=== PATIENT | female | born 1965 | race Caucasian/White ===

== ENCOUNTER 2020-07-20 23:32 | Emergency (ER) | payer MEDICARE ==
[2020-07-21] MEDS ORDERED: Aspirin 81 MG Tab.Chew PO ONE (00:11)
[2020-07-21 01:14] LABS: BLOOD UREA NITROGEN,BUN 14 mg/dL (7.0-18.0); CARBON DIOXIDE,CO2 29.1 mmol/L (21.0-32.0); CHLORIDE,CL 106 mmol/L (98-107); GLUCOSE RANDOM 80 mg/dL (74-106); POTASSIUM,K 3.5 mmol/L (3.5-5.1); SODIUM,NA 144 mmol/L (136-145)
--- NOTE | 2020-07-21 02:49 | US ---
INDICATION: Left foot greater than right lower extremity edema. COMPARISON: None available FINDINGS: Ultrasound of the venous drainage of both lower extremities shows no evidence of deep venous thrombosis. There is normal antegrade flow from the posterior tibial and popliteal veins superiorly through the common femoral vein in both legs. There is normal augmentation and compressibility of these veins. Superficial edema is seen in the left calf. IMPRESSION: No evidence of deep venous thrombosis on ultrasound examination of both lower extremities. Superficial edema in the left calf. Dictated by Jermaine Alvarez MD @ Jul 21 2020 2:46AM Signed by Dr. Jermaine Alvarez @ Jul 21 2020 2:48AM
--- NOTE | 2020-07-21 03:27 | CR ---
HISTORY: Pain after fall COMPARISON: None available. FINDINGS: The right foot is examined with AP, lateral, and oblique views. There is no sign of fracture or dislocation. There is mild soft tissue swelling of the distal foot with no sign of any gas in the soft tissues or radiopaque foreign body. There is mild primary osteoarthritis of the 1st MTP joint with moderate joint space narrowing, mild sclerosis of the articular surfaces, and mild marginal osteophyte formation. No additional degenerative changes seen elsewhere in the foot. IMPRESSION: No sign of acute osseous injury. 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 Dictated by Jermaine Alvarez MD @ Jul 21 2020 3:24AM Signed by Dr. Jermaine Alvarez @ Jul 21 2020 3:26AM
--- NOTE | 2020-07-21 03:29 | CR ---
HISTORY: Pain after fall. COMPARISON: None available. FINDINGS: AP, lateral and oblique views of the right ankle were obtained for a total of three views. There is no sign of fracture or dislocation. The ankle mortise is intact. The talar dome is intact. There is no sign of a joint effusion. There is mild swelling over the lateral malleolus with no evidence of an underlying fracture. The soft tissues are otherwise normal in appearance and there is no sign of any radiopaque foreign body. No degenerative disease is seen. IMPRESSION: No sign of acute osseous injury. Mild lateral soft tissue swelling. Dictated by Jermaine Alvarez MD @ Jul 21 2020 3:24AM Signed by Dr. Jermaine Alvarez @ Jul 21 2020 3:27AM
--- NOTE | 2020-07-21 03:29 | CR ---
INDICATION: Pain after fall COMPARISON: None available. FINDINGS: An erect single view of the chest was obtained at 0231 hours. The lungs are clear. No focal or diffuse infiltrates are present. The heart is mildly enlarged. The mediastinum is otherwise normal in appearance. The osseous structures are normal in appearance for the patient`s age. IMPRESSION: Mild cardiomegaly. Otherwise no active disease seen in the chest. Dictated by Jermaine Alvarez MD @ Jul 21 2020 3:24AM Signed by Dr. Jermaine Alvarez @ Jul 21 2020 3:28AM
--- NOTE | 2020-07-21 03:31 | CT ---
INDICATION: Status post fall with pain. COMPARISON: None available. TECHNIQUE: CT examination of the head was performed with 5 mm thick axial and 2 mm thick coronal and sagittal sections without intravenous contrast. Images were obtained from the vertex of the skull through the skull base, and I examined the images with the brain and bone windows. Please note that all CT scans at this facility use dose modulation, iterative reconstruction, and/or weight-based dosing when appropriate to reduce radiation dose to as low as reasonably achievable. FINDINGS: : The brain is normal in appearance for the patient`s age on today`s study, with no sign of mass lesion, mass effect, hemorrhage, or edema. The ventricles and sulci are normal in appearance for the patient`s age. The visualized portions of the orbits are normal in appearance. The visualized portions of the paranasal sinuses and mastoids are clear. The osseous structures are normal in their appearance with no sign of abnormality in the skull base or calvarium. IMPRESSION: Normal noncontrast CT of the head for the patient`s age. No sign of closed head injury. Please note that all CT scans at this facility use dose modulation, iterative reconstruction, and/or weight-based dosing when appropriate to reduce radiation dose to as low as reasonably achievable. Dictated by Jermaine Alvarez MD @ Jul 21 2020 3:24AM Signed by Dr. Jermaine Alvarez @ Jul 21 2020 3:31AM
--- NOTE | 2020-07-21 03:36 | CT ---
INDICATION: Status post fall with pain. COMPARISON: COMPARISON DATE TECHNIQUE: CT examination of the cervical spine is performed without contrast using spiral technique. 2 mm thick axial, sagittal and coronal reconstructions were made. Please note that all CT scans at this facility use dose modulation, iterative reconstruction, and/or weight-based dosing when appropriate to reduce radiation dose to as low as reasonably achievable. FINDINGS: : There is straightening of the cervical spine which may be the result of muscular spasm or positioning for the examination. There is no sign of fracture or subluxation. The cervical vertebral bodies are normal in height and are in anatomic alignment. There is no sign of prevertebral soft tissue swelling. There is moderate C5-6 disc degenerative disease with mild diffuse disc bulging and posterior osteophytic ridging. There may be a peripherally calcified disc herniation extending inferiorly from the disc space. These changes do not appear to be prominent enough to result in spinal stenosis. Moderate right foraminal stenosis from uncovertebral joint hypertrophy. Normal left neural foramen. There is mild disc degenerative disease at C4-5 without disc bulging, osteophytic ridging, or foraminal stenosis. There is moderate left C3-4 facet arthropathy with possible fusion in anatomic alignment. The airway structures are normal in appearance. The visualized skull base is normal in appearance. The visualized inferior brain is normal in appearance for the patient`s age. The apices of the lungs are clear. IMPRESSION: No sign of acute osseous injury to the cervical spine. Moderate disc degenerative disease at C5-6 with possible disc herniation, not prominent enough to result in spinal stenosis. Mild disc degenerative disease at C4-5. Please note that all CT scans at this facility use dose modulation, iterative reconstruction, and/or weight-based dosing when appropriate to reduce radiation dose to as low as reasonably achievable. Dictated by Jermaine Alvarez MD @ Jul 21 2020 3:24AM Signed by Dr. Jermaine Alvarez @ Jul 21 2020 3:35AM
--- NOTE | 2020-07-21 03:42 | CT ---
INDICATION: Pain after fall COMPARISON: COMPARISON DATE TECHNIQUE: CT examination of the abdomen and pelvis was performed with the uneventful intravenous administration of 100 cc of Isovue 370 while 2.5 mm thick axial sections were obtained from the lung bases through the pubic symphysis. Oral contrast was not administered. Please note that all CT scans at this facility use dose modulation, iterative reconstruction, and/or weight-based dosing when appropriate to reduce radiation dose to as low as reasonably achievable. FINDINGS: In the abdomen, the liver, spleen, atrophic pancreas, and adrenals are normal in appearance. The kidneys are normal in appearance. Clips are seen in the gall bladder fossa from cholecystectomy. There is no sign of biliary ductal dilatation. The abdominal aorta is normal in caliber with no sign of dilatation. There is no sign of retroperitoneal mass or adenopathy. There are several lines of surgical marsha in the gastric fundus consistent with gastric bypass surgery. A small bowl anastamosis is seen in the left upper quadrant with no sign of stricture. The distal stomach, the rest of the loops of small bowel, and colon in the abdomen are normal in appearance. In the pelvis, the appendix is normal in appearance with no sign of inflammatory process. There is prominent sigmoid diverticulosis without evidence of diverticulitis. The loops of small bowel and colon in the pelvis are otherwise normal in appearance. The uterus is absent and the adnexal regions are normal in appearance. The urinary bladder is normal in appearance. There is no sign of pelvic or inguinal mass or adenopathy. There is no sign of free air or free fluid in the abdomen or pelvis. There is mild patchy and linear atelectasis in the posterior right lung base. The lung bases are otherwise clear. There are changes of laminectomy and fusion at L5-S1 with bilateral intrapedicular screws with vertical and transverse connecting hardware. There is no sign of fracture or loosening of the hardware. There is grade 1-2 anterior subluxation of L5 on S1. There is solid osseous fusion with complete absence of the L5 and S1 disc space. Incidental note is made of failure of fusion of an accessory ossification center at the tip of the right L4 transverse process, not an acute fracture. There is no sign of acute fracture of the lumbar spine, pelvis, or hips. IMPRESSION: No sign of acute traumatic injury to the abdomen or pelvis. CT of the abdomen shows changes of cholecystectomy with no sign of biliary ductal dilatation. Changes of gastric bypass surgery. CT of the pelvis shows changes of hysterectomy. Solid fusion of L5-S1 with grade 1-2 anterior subluxation of L5 on S1. Please note that all CT scans at this facility use dose modulation, iterative reconstruction, and/or weight-based dosing when appropriate to reduce radiation dose to as low as reasonably achievable. Dictated by Jermaine Alvarez MD @ Jul 21 2020 3:24AM Signed by Dr. Jermaine Alvarez @ Jul 21 2020 3:41AM
[2020-07-21] MEDS ORDERED: Iopamidol 755 MG/ML 500 ML Multipack Bottle IVPUSH STA (03:51)
--- NOTE | 2020-07-21 05:31 | EDM.PDOC ---
ED HPI GENERAL MEDICAL PROBLEM - General Chief Complaint: Lower Extremity Injury/Pain Stated Complaint: RT FOOT INJURY, BLACKING OUT Time Seen by Provider: 07/21/20 00:13 - History of Present Illness INITIAL COMMENTS - FREE TEXT/NARRATIVE: CHIEF COMPLAINT(S): Right foot pain HISTORY OF PRESENT ILLNESS: This is a 54-year-old woman with a past medical history of hypertension, reported CHF, COPD, anxiety and chronic pain who comes to the emergency department with a chief complaint of right foot pain. The patient states that over the last couple of days she has been accidentally falling. She states that last Wednesday she got out of bed and twisted her right foot and toes as she had twisted and fell backward hitting her head. She states that since that time she has been experiencing swollen toes and foot on the right side. She denies any numbness or tingling. She states that she did not have any loss of consciousness when she hit her head. She denies any vomiting, chest pain or shortness of breath. She denies any preceding chest pain or shortness of breath. She states that she has not yet seen a doctor for her foot. She states that the pain is worse when she puts pressure on it. She denies any relieving symptoms. She states that she does have a history of chronic pain due to a surgery and a knee surgery for which she takes oxycodone. She has seen a armored car messenger and does telemedicine follow-up with them. She states that 2 hours ago she fell out of bed and may have lost consciousness and hit her head. She states that she just was rolling out of her bed. In addition to that she was walking from the kitchen to the bedroom and she turned around and tripped over a litter box and hit the right side of her chest. She denies any syncope, preceding chest pain, preceding shortness of breath. She states that she lives by herself. REVIEW OF SYSTEMS: Constitutional: Denies fever, chills. Eyes: Denies eye pain Ears, Nose, Mouth, & Throat: Denies earache Cardiovascular: Positive for right-sided chest pain, denies exertional chest pain, syncope Respiratory: Denies shortness of breath, orthopnea, exertional dyspnea Gastrointestinal: Denies Nausea, vomiting, diarrhea, hematochezia. Genitourinary: Denies hematuria Skin:Denies a rash MSK: Positive for right foot pain. Neurological: Denies blurred vision, numbness, tingling, weakness Psychiatric: Denies depression PAST MEDICAL HISTORY: As per history of present illness and as reviewed below otherwise noncontributory. SURGICAL HISTORY: As per history of present illness and as reviewed below otherwise noncontributory. SOCIAL HISTORY: As per history of present illness and as reviewed below otherwise noncontributory. FAMILY HISTORY: As per history of present illness and as reviewed below otherwise noncontributory. EXAMINATION OF ORGAN SYSTEMS/BODY AREAS: Constitutional: Blood pressure is 146/93, heart rate 93, respiratory rate 18 with an oxygen saturation 96% on room air. Temperature 36 point General: Middle-aged woman who does not appear to be in acute distress Psychiatric: Appropriate mood and affect. Head: Normocephalic, atraumatic Eyes: No scleral icterus or conjunctival erythema pupils are equal round reactive to light. Extraocular movements intact. No vertical or horizontal nystagmus. ENMT: Moist mucous membranes. No pharyngeal erythema no blood in the oropharynx. No missing or chipped teeth. Neck was supple. Bilateral tympanic membranes without hemotympanum Cardiovascular: Regular, rate, and rhythm. No gallops, murmurs, or rubs. Bilateral upper extremity pulses symmetric and intact. Trace pitting edema of the lower extremities. Left lower extremity is larger than the left. No JVD. Respiratory: Lungs clear to auscultation bilaterally. No wheezes, rales, or rhonchi. Speaking in full sentences Gastrointestinal: Soft, nontender, distended. Normoactive bowel sounds no rebound or guarding. Genitourinary: No suprapubic tenderness Musculoskeletal: There is some tenderness to palpation along the right foot with full range of motion at the ankle and the toes. There is no obvious bruising or deformity. Skin: No lesions or abrasions. Neurological: Alert, GCS 15 strength and sensation grossly intact in upper and lower extremities bilaterally. MEDICAL DECISION MAKING AND COURSE IN THE ED WITH INTERPRETATION/REVIEW OF DIAGNOSTIC STUDIES: This is a 54-year-old and with a past medical history of reported CHF and hypertension and chronic pain who comes to the emergency department with recurrent falls with right foot pain, asymmetric lower extremity with distended abdomen. At this time given her recurrent falls we obtain a CT head without contrast, CT cervical spine. We did place a cervical collar on the patient. We will obtain a chest x-ray and right ankle x-ray. Given the asy mmetry on lower extremity examination will obtain a venous Doppler. Will obtain a right foot x-ray and a CT abdomen pelvis given the distention. Will obtain broad laboratory analysis. We also obtain a Covid test. Differential at this time is broad however I do believe the patient is having recurrent falls as she has injured her right foot 1 week ago and is using oxycodone for pain relief. The patient is neurologically intact. We will provide the patient with aspirin by mouth. Laboratory: CBC is unremarkable. Coags are normal. CMP is unremarkable. Troponin is negative. Covid is negative. Time: 1236 Twelve-lead EKG interpreted by myself. Normal sinus rhythm at a rate of 84 beats per minute. Normal axis. MI interval is 140 ms. QRS duration is [address] segments are normal without elevations or depressions. There is a T wave inversion in lead III there is a Q wave in lead III. Hypertrophy not noted. No prior EKGs in our system. Interpretation: Normal sinus rhythm The radiological images were viewed by myself along with reading the report from the radiologist. CT head without contrast does not reveal any acute intracranial abnormality. CT cervical spine does not reveal any fracture or subluxation. There is moderate degenerative disc disease at C5-C6 with possible disc herniation which does not result in spinal stenosis. Mild disc degenerative disease at C4-C5. Chest x-ray does not reveal any acute cardiopulmonary process. There is mild cardiomegaly. CT abdomen pelvis with contrast does not reveal any acute traumatic injury of the abdomen or pelvis. There is changes of cholecystectomy with no sign of biliary ductal dilation. There is changes of bypass surgery. Changes of hysterectomy. There is solid fusion L5-S1 with grade 1-2 anterior subluxation. There are no signs of fracture or loosening of the hardware. Right foot x-ray does not reveal any fracture or dislocation. Right ankle x-ray does not reveal any fracture dislocation. At the time of my reevaluation the patient's vitals continue to remain stable. I did discuss that at this time the given the recurrent falls we could admit the patient to the hospital for evaluation by PT and OT. She requested that she be discharged. The patient was able to ambulate without any assistance and was able to tolerate p.o. The patient does have a friend at bedside and we did have a lengthy discussion regarding recurrent falls and injury. At this time the patient elected to be discharged with follow-up with her primary care physician for which I provided her contact information in order to set up outpatient physical therapy, Occupational Therapy evaluation. I discussed with her precautions and strict return precautions. She was amenable discharge at this time and had no further questions. I do believe the patient is safe for discharge given her friend will be helping her. DISPOSITION: The patient was discharged home in stable condition. The patient will follow up with primary care physician tomorrow CONDITION: Fair PROCEDURES: None FINAL IMPRESSION(S)/DIAGNOSES: 1. Acute recurrent falls 2. Acute right foot pain likely soft tissue injury 3. Asymmetric lower extremity edema, unknown etiology Anup Souza M.D. Treatments TRANSCRIPTION COORDINATOR: Reports: Cervical Collar R ribs Pain Score (Numeric/FACES): 6 R foot Pain Score (Numeric/FACES): 6 - Related Data Allergies Allergy/AdvReac Type Severity Reaction Status Date / Time morphine Allergy Other Verified 07/21/20 00:21 Penicillins Allergy Hives Verified 07/21/20 00:21 Home Meds: Home Meds Budesonide/Formoterol [Symbicort 160-4.5 MCG] 2 puff INH DAILY 07/21/20 [History] Chlorthalidone 25 mg PO DAILY 07/21/20 [History] EPINEPHrine [Epipen] 1 ampule IM DAILY PRN 07/21/20 [History] FLUoxetine [PROzac] 10 ml PO DAILY 07/21/20 [History] Loratadine 10 mg PO DAILY 07/21/20 [History] Metoprolol Succinate 25 mg PO DAILY 07/21/20 [History] Montelukast [Singulair] 10 mg PO DAILY 07/21/20 [History] Naloxone [Narcan] 1 ampule IM DAILY PRN 07/21/20 [History] Non-Formulary Medication [NF Drug] 2 drop EYEBOTH DAILY 07/21/20 [History] QUEtiapine [SEROquel] 200 mg PO DAILY 07/21/20 [History] SUMAtriptan succinate [Imitrex] 100 mg PO DAILY 07/21/20 [History] Tiotropium Buhl [Spiriva Respimat] 2 puff INH DAILY 07/21/20 [History] atorvaSTATin [Lipitor] 10 mg PO DAILY 07/21/20 [History] clonazePAM [Clonazepam] 2 mg PO DAILY 07/21/20 [History] dilTIAZem HCL [Diltiazem 12Hr ER] 120 mg PO DAILY 07/21/20 [History] lamoTRIgine [Lamotrigine] 200 mg PO DAILY 07/21/20 [History] oxyCODONE 5 mg PO Q6HR PRN 07/21/20 [History] Past Medical History HEENT History: Reports: Macular Degeneration Cardiovascular History: Reports: Heart Failure, Hypertension Other Cardiovascular History: tachycardia, long QT syndrome Respiratory History: Reports: COPD Other Gastrointestinal History: gastric bypass 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: Musculoskeletal History: Reports: Fibromyalgia, Osteoarthritis Other Musculoskeletal History: shoulder pain, spinal sx, Psychiatric History: Reports: Anxiety, Bipolar Other Endocrine/Metabolic History: pre-diabetic - Infectious Disease History Infectious Disease History: Reports: Chicken Pox, Shingles - Past Surgical History HEENT Surgical History: Reports: Adenoidectomy, Myringotomy w Tube(s), Naso- Sinus Surgery, Tonsillectomy Female Surgical History: Reports: Hysterectomy Musculoskeletal Surgical History: Reports: Knee Replacement Social & Family History - Family History Family Medical History: No Pertinent Family History - Caffeine Use Caffeine Use: Reports: Coffee, Tea - Recreational Drug Use Recreational Drug Use: No Review of Systems - Review of Systems Review Of Systems: See Below ED EXAM, GENERAL - Physical Exam Exam: See Below Course - Vital Signs Last Recorded V/S: Last Vital Signs Temp 36.6 C 07/20/20 23:57 Pulse 80 07/21/20 05:58 Resp 20 07/21/20 05:58 BP 126/90 07/21/20 01:11 Pulse Ox 100 07/21/20 05:58 - Orders/Labs/Meds Labs: Laboratory Tests 07/21/20 07/21/20 07/21/20 Range/Units 00:25 00:25 00:25 WBC 9.72 (4.0-11.0) K/uL RBC 4.22 L (4.30-5.90) M/uL Hgb 12.1 (12.0-16.0) g/dL Hct 38.1 (36.0-46.0) % MCV 90.3 (80.0-98.0) fL MCH 28.7 (27.0-32.0) pg MCHC 31.8 (31.0-37.0) g/dL RDW Std Deviation 63.6 H (28.0-62.0) fl RDW Coeff of Gifty 20 H (11.0-15.0) % Plt Count 313 (150-400) K/uL MPV 10.10 (7.40-12.00) fL Neut % (Auto) 46.9 L (48.0-80.0) % Lymph % (Auto) 40.4 H (16.0-40.0) % [place] % (Auto) 11.0 (0.0-15.0) % Eos % (Auto) 1.3 (0.0-7.0) % Baso % (Auto) 0.4 (0.0-1.5) % Neut # (Auto) 4.6 (1.4-5.7) K/uL Lymph # (Auto) 3.9 H (0.6-2.4) K/uL [place] # (Auto) 1.1 H (0.0-0.8) K/uL Eos # (Auto) 0.1 (0.0-0.7) K/uL Baso # (Auto) 0.0 (0.0-0.1) K/uL INR 1.02 Sodium 144 (136-145) mmol/L Potassium 3.5 (3.5-5.1) mmol/L Chloride 106 (98-107) mmol/L Carbon Dioxide 29.1 (21.0-32.0) mmol/L BUN 14 (7.0-18.0) mg/dL Creatinine 0.9 (0.6-1.0) mg/dL Est Cr Clr Drug Dosing 58.42 mL/min Estimated GFR (MDRD) > 60.0 ml/min Glucose 80 (74-106) mg/dL Calcium 9.1 (8.5-10.1) mg/dL Magnesium 2.1 (1.8-2.4) mg/dL Total Bilirubin 0.3 (0.2-1.0) mg/dL AST 23 (15-37) IU/L ALT 42 (14-63) IU/L Alkaline Phosphatase 93 (46-116) U/L Creatine Kinase 142 (26-308) U/L Troponin I < 0.050 (0.000-0.056) ng/mL B-Natriuretic Peptide (<100) PG/ML Total Protein 7.3 (6.4-8.2) g/dL Albumin 3.4 (3.4-5.0) g/dL Globulin 3.9 (2.6-4.0) g/dL Albumin/Globulin Ratio 0.9 (0.9-1.6) SARS-CoV-2 RNA (ANGELA) (NEGATIVE) Blood Type Antibody Screen 07/21/20 07/21/20 07/21/20 Range/Units 00:25 00:30 03:07 WBC (4.0-11.0) K/uL RBC (4.30-5.90) M/uL Hgb (12.0-16.0) g/dL Hct (36.0-46.0) % MCV (80.0-98.0) fL MCH (27.0-32.0) pg MCHC (31.0-37.0) g/dL RDW Std Deviation (28.0-62.0) fl RDW Coeff of Gifty (11.0-15.0) % Plt Count (150-400) K/uL MPV (7.40-12.00) fL Neut % (Auto) (48.0-80.0) % Lymph % (Auto) (16.0-40.0) % [place] % (Auto) (0.0-15.0) % Eos % (Auto) (0.0-7.0) % Baso % (Auto) (0.0-1.5) % Neut # (Auto) (1.4-5.7) K/uL Lymph # (Auto) (0.6-2.4) K/uL [place] # (Auto) (0.0-0.8) K/uL Eos # (Auto) (0.0-0.7) K/uL Baso # (Auto) (0.0-0.1) K/uL INR Sodium (136-145) mmol/L Potassium (3.5-5.1) mmol/L Chloride (98-107) mmol/L Carbon Dioxide (21.0-32.0) mmol/L BUN (7.0-18.0) mg/dL Creatinine (0.6-1.0) mg/dL Est Cr Clr Drug Dosing mL/min Estimated GFR (MDRD) ml/min Glucose (74-106) mg/dL Calcium (8.5-10.1) mg/dL Magnesium (1.8-2.4) mg/dL Total Bilirubin (0.2-1.0) mg/dL AST (15-37) IU/L ALT (14-63) IU/L Alkaline Phosphatase (46-116) U/L Creatine Kinase (26-308) U/L Troponin I (0.000-0.056) ng/mL B-Natriuretic Peptide 41 (<100) PG/ML Total Protein (6.4-8.2) g/dL Albumin (3.4-5.0) g/dL Globulin (2.6-4.0) g/dL Albumin/Globulin Ratio (0.9-1.6) SARS-CoV-2 RNA (ANGELA) NEGATIVE (NEGATIVE) Blood Type O POSITIVE Antibody Screen NEGATIVE Meds: Medications Discontinued Medications Generic Name Dose Route Start Last Admin Trade Name Salazar PRN Reason Stop Dose Admin Aspirin 324 mg 07/21/20 00:11 07/21/20 00:21 Aspirin PO 07/21/20 00:12 324 mg ONETIME ONE Administration Iopamidol 100 ml 07/21/20 03:51 07/21/20 03:52 Isovue Multipack-370 (76%) IVPUSH 07/21/20 03:52 100 ml ONETIME STA Administration Departure - Departure Time of Disposition: 05:30 Disposition: Home, Self-Care 01 Condition: Fair Clinical Impression: Falls frequently Foot pain Qualifiers: Laterality: right Qualified Code(s): M79.671 - Pain in right foot - Discharge Information *PRESCRIPTION DRUG MONITORING PROGRAM REVIEWED*: No *COPY OF PRESCRIPTION DRUG MONITORING REPORT IN PATIENT KINSEY: No Instructions: Fall Prevention in the Home, Adult, [id number], Understanding Your Risk for Falls, Pain Medicine Instructions, [id number], Foot Pain Referrals: Amrit Garcia MD [Primary Care Provider] - Forms: ED Department Discharge Additional Instructions: You were evaluated today on an emergent basis. All of your imaging and work-up was negative. At this time I do believe you are deconditioned given your right foot pain. I recommend that you pay close attention to how you are walking so that you do not fall again. In discussion with you you did elect to do outpatient work-up and I recommend you call your primary care physician on Wednesday to schedule appointments to be evaluated for possible home health care and physical therapy. For your pain you may use Tylenol and Motrin for pain relief every 6 hours as needed. You may use ice to your right foot 20 minutes 4 times a day for decrease inflammation. If you have any new or worsening symptoms such as chest pain, shortness of breath, swelling please return to the emergency department. Please use: Tylenol 500-1000mg every 6 hours (DO NOT TAKE MORE THAN 4000mg in 1 day) Ibuprofen 400mg every 6 hours (Take with food as it can cause ulcers, GI upset) Example schedule: 8:00 AM (Tylenol 500-1000mg) 11:00 AM (Ibuprofen 400mg) 2:00 PM (Tylenol 500-1000mg) 5:00 PM (Ibuprofen 400mg) In addition to Tylenol and Motrin you may use over the counter creams such as Voltaren Cream or Lidocaine Cream (Lidoderm) as needed 4 times a day for symptomatic relief. Ice the area 20 minutes 4 times per day [facility] [address] [place] [address] [place] [address] The patient is informed of any results of their evaluation and diagnostic workup and all questions are answered. They are given discharge instructions and return precautions. The patient is stable for discharge. The patient states they understand and agree with the plan and that they will return if their symptoms get worse or if they have any new concerns. The following information is given to patients seen in the emergency department who are being discharged to home. This information is to outline your options for follow-up care. We provide all patients seen in our emergency department with a follow-up referral. The need for follow-up, as well as the timing and circumstances, are variable depending upon the specifics of your emergency department visit. If you don't have a primary care physician on staff, we will provide you with a referral. We always advise you to contact your personal physician following an emergency department visit to inform them of the circumstance of the visit and for follow-up with them and/or the need for any referrals to a consulting specialist. The emergency department will also refer you to a specialist when appropriate. This referral assures that you have the opportunity for follow-up care with a specialist. All of these measure are taken in an effort to provide you with optimal care, which includes your follow-up. Under all circumstances we always encourage you to contact your private physician who remains a resource for coordinating your care. When calling for follow-up care, please make the office aware that this follow-up is from your recent emergency room visit. If for any reason you are refused follow-up, please contact the [facility] Emergency Department at and asked to speak to the emergency department charge nurse. Sepsis Event Note (ED) - Evaluation Sepsis Screening Result: No Definite Risk
== END 2020-07-21 05:58 | disposition home or self-care (01) ==
LOC: MW.ED 23:32
DX: M79.671 Pain in right foot (principal); R60.0 Localized edema; R07.81 Pleurodynia; I11.0 Hypertensive heart disease with heart failure; I50.9 Heart failure, unspecified; J44.9 Chronic obstructive pulmonary disease, unspecified; M19.90 Unspecified osteoarthritis, unspecified site; R29.6 Repeated falls; Z88.5 Allergy status to narcotic agent; Z88.0 Allergy status to penicillin; Z79.899 Other long term (current) drug therapy; Z20.822 Contact with and (suspected) exposure to COVID-19
CPT/HCPCS: 36415; 70450; 71045; 72125; 73610; 73630; 74177; 80053; 82550; 83735; 83880; 84484; 85025; 85610; 86850; 86900; 86901; 93005; 93970; 99284; A9270; Q9967; U0002; 93010

== ENCOUNTER 2020-10-05 16:24 | Emergency (ER) | payer MEDICARE ==
[2020-10-05] MEDS ORDERED: Ketorolac 60 MG/2 ML SDV IM ONE (17:04)
[2020-10-05] MEDS ORDERED: Clindamycin HCl 150 MG Cap PO ONE (17:05)
--- NOTE | 2020-10-05 17:11 | EDM.PDOC ---
ED HPI GENERAL MEDICAL PROBLEM - General Chief Complaint: General Stated Complaint: TOOTHACHE Time Seen by Provider: 10/05/20 16:43 Source of Information: Reports: Patient History Limitations: Reports: No Limitations - History of Present Illness INITIAL COMMENTS - FREE TEXT/NARRATIVE: HISTORY AND PHYSICAL: History of present illness: Patient is a 55-year-old who presents to the emergency room after attempting to remove her own tooth her left upper jaw. She states that she has been dealing with this tooth for over 2 years and does not have dental insurance and just cannot take the pain anymore. The patient also states that she has pain in her right lower molar area from an abscessed tooth. The patient is asking for equipment to remove her own tooth in the emergency room department. She has never attempted to remove her tooth previously. Patient denies any fever, chills, headache, change in vision, syncope or near syncope. Denies any chest pain, back pain, shortness of breath or cough. Denies any abdominal pain, nausea, vomiting, diarrhea, constipation or dysuria. Has not noted any blood in urine or stool. Patient has been eating and drinking appropriately. Emergency department the patient is hemodynamically stable with slightly elevated blood pressure 145/85 and heart rate of 81. She is afebrile of 97.2. Review of systems: As per history of present illness and below otherwise all systems reviewed and negative. Past medical history: As per history of present illness and as reviewed below otherwise noncontributory. Surgical history: As per history of present illness and as reviewed below otherwise noncontributory. Social history: See social history for further information Family history: As per history of present illness and as reviewed below otherwise noncontributory. Physical exam: General: Well developed and well nourished. Alert and orientated x 3. Nontoxic in appearance and in no acute distress. Vital signs are stable and have been reviewed by me. Nursing notes were reviewed. HEENT: Atraumatic, normocephalic, pupils equal and reactive bilaterally, negative for conjunctival pallor or scleral icterus, mucous membranes moist, TMs normal bilaterally, throat clear, neck supple, nontender, trachea midline. No drooling or trismus noted. No meningeal signs. No hot potato voice noted. Tooth #14 posterior left side is missing,and the tooth has caries. The surrounding gum is erythematous. The tooth #30 is at the gum line and carious with surrounding gums erythematous. No pockets of abbesses noted. Lungs: Clear to auscultation bilaterally. No wheezes, rales, or rhonchi. Chest nontender. Normal work of breathing, no accessory muscles used. Heart: S1S2, regular rate and rhythm without overt murmur, gallops, or rubs. No JVD. No peripheral edema Abdomen: Soft, nondistended, nontender. Normoactive bowel sounds. Negative for masses or costovertebral tenderness. Pelvis: Stable nontender. Genitourinary/Rectal: Deferred. Skin: Intact, warm, dry. No lesions or rashes noted. Hematologic: No petechiae or purpra. Mucosa appropriate color and normal nail bed color and refill. Extremities: Atraumatic, moves all extremities per self without difficulty or deficits, negative for cords or calf pain. Neurovascular unremarkable. Neuro: Awake, alert, oriented. Cranial nerves II through XII unremarkable. Cerebellum unremarkable. Motor and sensory unremarkable throughout. Exam nonfocal. Psychiatric: Mood and affect are appropriate. Normal thought process. Answering questions appropriately. Notes: *This patient was seen and evaluated during the 2019 SARS-CoV-2 novel coronavirus pandemic period. Community viral transmission is ongoing at time of this encounter and the emergency department is operating under pandemic response procedures. The patient presented for removal of her left upper molar after attempting home removal. Upon examination it appears there is an infection in the left upper molar and lower right molar. I informed the patient that we do not remove teeth in the emergency department and that she needed to make an appointment with a dentist for definitive treatment. I have given her a shot of Toradol for pain relief and prescribed Clindamycin 150 mg p.o. twice daily for 10 days. The patient is agreeable with the discharge plan. I have talked with the patient about today's findings, in addition to providing specific details for plan of care. Reassessment at the time of disposition demonstrates that the patient is in no acute distress. The patient is stable for discharge, counseling was provided and we discussed in great detail signs and symptoms that would prompt them to return to the Emergency Department. Medication, follow up and supportive care measures were reviewed and discussed. Voices understanding and is agreeable to plan of care. Denies any further questions or concerns at this time. Prescription: Clindamycin 150 mg p.o. twice daily for 10 days Impression: Dental caries Plan: 1. You were evaluated today on an emergent basis. Your complaints of right lower dental pain after you attempted to remove your tooth at home and left upper dental pain was found to be infected teeth. I gave you an injection of Toradol 60 mg for your pain and clindamycin 150 mg antibiotic for the infection. I will send over prescription for clindamycin 150 mg p.o. twice daily for 10 days to the pharmacy. The definitive treatment is to have a dentist extract your tooth. Please do not attempt removing your tooth at home. 2. You can alternate Tylenol and ibuprofen as needed for pain and fever management. 3. We encourage you to follow up with your primary care provider and/or recommended specialist in the next few days for re-evaluation and further care/management. 4. If your symptoms should worsen, new symptoms develop or any of the signs and symptoms we discussed should arise please return to the emergency room or call 911 (if needed). Definitive disposition and diagnosis as appropriate pending reevaluation and review of above. Right Lower Tooth/Teeth Pain Score (Numeric/FACES): 10 - Related Data Allergies Allergy/AdvReac Type Severity Reaction Status Date / Time morphine Allergy Other Verified 07/21/20 00:21 Penicillins Allergy Hives Verified 07/21/20 00:21 Home Meds: Home Meds Budesonide/Formoterol [Symbicort 160-4.5 MCG] 2 puff INH DAILY 07/21/20 [History] Chlorthalidone 25 mg PO DAILY 07/21/20 [History] EPINEPHrine [Epipen] 1 ampule IM DAILY PRN 07/21/20 [History] FLUoxetine [PROzac] 10 ml PO DAILY 07/21/20 [History] Loratadine 10 mg PO DAILY 07/21/20 [History] Metoprolol Succinate 25 mg PO DAILY 07/21/20 [History] Montelukast [Singulair] 10 mg PO DAILY 07/21/20 [History] Naloxone [Narcan] 1 ampule IM DAILY PRN 07/21/20 [History] Non-Formulary Medication [NF Drug] 2 drop EYEBOTH DAILY 07/21/20 [History] QUEtiapine [SEROquel] 200 mg PO DAILY 07/21/20 [History] SUMAtriptan succinate [Imitrex] 100 mg PO DAILY 07/21/20 [History] Tiotropium [place] [Spiriva Respimat] 2 puff INH DAILY 07/21/20 [History] atorvaSTATin [Lipitor] 10 mg PO DAILY 07/21/20 [History] clonazePAM [Clonazepam] 2 mg PO DAILY 07/21/20 [History] dilTIAZem HCL [Diltiazem 12Hr ER] 120 mg PO DAILY 07/21/20 [History] lamoTRIgine [Lamotrigine] 200 mg PO DAILY 07/21/20 [History] oxyCODONE 5 mg PO Q6HR PRN 07/21/20 [History] clindamycin HCL [Clindamycin HCl] 150 mg PO Q8HR 10 Days #30 capsule 10/05/20 [Rx] Past Medical History HEENT History: Reports: Macular Degeneration Cardiovascular History: Reports: Heart Failure, Hypertension Other Cardiovascular History: tachycardia, long QT syndrome Respiratory History: Reports: COPD Other Gastrointestinal History: gastric bypass SHIRT TRIMMER History: Reports: Musculoskeletal History: Reports: Fibromyalgia, Osteoarthritis Other Musculoskeletal History: shoulder pain, spinal sx, Psychiatric History: Reports: Anxiety, Bipolar Other Endocrine/Metabolic History: pre-diabetic Hematologic History: Reports: None Immunologic History: Reports: None Oncologic (Cancer) History: Reports: None - Infectious Disease History Infectious Disease History: Reports: Chicken Pox, Shingles - Past Surgical History Head Surgeries/Procedures: Reports: None HEENT Surgical History: Reports: Adenoidectomy, Myringotomy w Tube(s), Naso- Sinus Surgery, Tonsillectomy Female Surgical History: Reports: Hysterectomy Musculoskeletal Surgical History: Reports: Knee Replacement Oncologic Surgical History: Reports: None Social & Family History - Family History Family Medical History: No Pertinent Family History - Tobacco Use Tobacco Use Status *Q: Never Tobacco User - Caffeine Use Caffeine Use: Reports: None, Coffee - Recreational Drug Use Recreational Drug Use: No ED ROS GENERAL - Review of Systems Review Of Systems: Comprehensive ROS is negative, except as noted in HPI. ED EXAM, GENERAL - Physical Exam Exam: See Below Course - Vital Signs Last Recorded V/S: Last Vital Signs Temp 97.2 F 10/05/20 16:47 Pulse 81 10/05/20 16:47 Resp 18 10/05/20 16:47 BP 142/85 H 10/05/20 16:47 Pulse Ox 99 10/05/20 16:47 - Orders/Labs/Meds Meds: Medications Discontinued Medications Generic Name Dose Route Start Last Admin Trade Name Salazar PRN Reason Stop Dose Admin Clindamycin HCl 150 mg 10/05/20 17:05 10/05/20 17:12 Clindamycin Hcl 150 Mg Cap PO 10/05/20 17:06 150 mg ONETIME ONE Administration Ketorolac Tromethamine 60 mg 10/05/20 17:04 10/05/20 17:13 Ketorolac 60 Mg/2 Ml Sdv IM 10/05/20 17:05 60 mg ONETIME ONE Administration Departure - Departure Time of Disposition: : Disposition: Home, Self-Care 01 Condition: Good Clinical Impression: Dental caries - Discharge Information *PRESCRIPTION DRUG MONITORING PROGRAM REVIEWED*: Not Applicable *COPY OF PRESCRIPTION DRUG MONITORING REPORT IN PATIENT [place]: Not Applicable Prescriptions: clindamycin HCL [Clindamycin HCl] 150 mg PO Q8HR 10 Days #30 capsule Instructions: Diet and Dental Disease Referrals: Haley Morris NP [Primary Care Provider] - Forms: ED Department Discharge Additional Instructions: The following information is given to patients seen in the emergency department who are being discharged to home. This information is to outline your options for follow-up care. We provide all patients seen in our emergency department with a follow-up referral. The need for follow-up, as well as the timing and circumstances, are variable depending upon the specifics of your emergency department visit. If you don't have a primary care physician on staff, we will provide you with a referral. We always advise you to contact your personal physician following an emergency department visit to inform them of the circumstance of the visit and for follow-up with them and/or the need for any referrals to a consulting ecialist. The emergency department will also refer you to a specialist when appropriate. This referral assures that you have the opportunity for follow-up care with a specialist. All of these measure are taken in an effort to provide you with optimal care, which includes your follow-up. Under all circumstances we always encourage you to contact your private physician who remains a resource for coordinating your care. When calling for follow-up care, please make the office aware that this follow-up is from your recent emergency room visit. If for any reason you are refused follow-up, please contact the [facility] Emergency Department at and asked to speak to the emergency department charge nurse. [facility] [address] [place] [address] [facility] [address] [place] [address] Plan: 1. You were evaluated today on an emergent basis. Your complaints of right lower dental pain after you attempted to remove your tooth at home and left upper dental pain was found to be infected teeth. I gave you an injection of Toradol 60 mg for your pain and clindamycin 150 mg antibiotic for the infection. I will send over prescription for clindamycin 150 mg p.o. twice daily for 10 days to the pharmacy. The definitive treatment is to have a dentist extract your tooth. Please do not attempt removing your tooth at home. 2. You can alternate Tylenol and ibuprofen as needed for pain and fever management. 3. We encourage you to follow up with your primary care provider and/or recommended specialist in the next few days for re-evaluation and further care/management. 4. If your symptoms should worsen, new symptoms develop or any of the signs and symptoms we discussed should arise please return to the emergency room or call 911 (if needed). Sepsis Event Note (ED) - Evaluation Sepsis Screening Result: No Definite Risk
== END 2020-10-05 17:43 | disposition home or self-care (01) ==
LOC: MW.ED 16:24
DX: K02.9 Dental caries, unspecified (principal); I11.0 Hypertensive heart disease with heart failure; I50.9 Heart failure, unspecified; J44.9 Chronic obstructive pulmonary disease, unspecified; Z79.899 Other long term (current) drug therapy; Z88.5 Allergy status to narcotic agent; Z88.0 Allergy status to penicillin
CPT/HCPCS: 96372; 99282; A9270; J1885; 99283

== ENCOUNTER 2020-10-08 18:00 | Emergency (ER) | payer MEDICARE ==
[2020-10-08] MEDS ORDERED: Bacitracin Oint 1 GM U/D Packet TOP ONE (18:12)
[2020-10-08] MEDS ORDERED: Diphtheria,Pertussis(Acell),Tetanus Vaccine 0.5 ML Syringe IM ONE (18:12)
--- NOTE | 2020-10-08 18:12 | EDM.PDOC ---
ED HPI GENERAL MEDICAL PROBLEM - General Chief Complaint: Upper Extremity Injury/Pain Stated Complaint: LT ARM CUT YESTERDAY, POSSIBLE INFECTION Time Seen by Provider: 10/08/20 18:10 Source of Information: Reports: Patient History Limitations: Reports: No Limitations - History of Present Illness INITIAL COMMENTS - FREE TEXT/NARRATIVE: HISTORY AND PHYSICAL: History of present illness: Patient is a 55-year-old female who presents to the emergency room with complaints of a skin infection from a superficial laceration from a fan blade that occurred yesterday. Patient states she walked by a running fan that did not have a cover when her arm grazed against the blade resulting in a superficial laceration. Today she noticed some mild redness around the laceration site. She was prescribed clindamycin yesterday for a dental infection (tried to remove her own tooth with a pliers). She has had 2 doses of clindamycin thus far. Patient denies any fever, chills, headache, change in vision, syncope or near syncope. Denies any chest pain, back pain, shortness of breath or cough. Denies any abdominal pain, nausea, vomiting, diarrhea, constipation or dysuria. Has not noted any blood in urine or stool. Patient has been eating and drinking appropriately. Unsure of her last tetanus update Review of systems: As per history of present illness and below otherwise all systems reviewed and negative. Past medical history: As per history of present illness and as reviewed below otherwise noncontributory. Surgical history: As per history of present illness and as reviewed below otherwise noncontributory. Social history: See social history for further information Family history: As per history of present illness and as reviewed below otherwise noncontributory. Physical exam: General: Well developed and well nourished 55-year-old female. Alert and orientated x 3. Nontoxic in appearance and in no acute distress. Vital signs are stable and have been reviewed by me. Nursing notes were reviewed. HEENT: Atraumatic, normocephalic, pupils equal and reactive bilaterally, negative for conjunctival pallor or scleral icterus, mucous membranes moist, TMs normal bilaterally, throat clear, neck supple, nontender, trachea midline. No drooling or trismus noted. No meningeal signs. No hot potato voice noted. Lungs: Clear to auscultation bilaterally. No wheezes, rales, or rhonchi. Chest nontender. Normal work of breathing, no accessory muscles used. Heart: S1S2, regular rate and rhythm without overt murmur, gallops, or rubs. No JVD. No peripheral edema Abdomen: Soft, nondistended, nontender. Skin: 3 cm C-shaped superficial laceration with minimal redness surrounding the site on the left elbow. 1 cm abrasion to the left proximal forearm. No fluctuance or induration. Remaining skin is intact, warm, dry. She does have some healing "cat scratches" to the right forearm. No lesions or rashes noted. Hematologic: No petechiae or purpra. Mucosa appropriate color and normal nail bed color and refill. Extremities: See skin for details. She moves all extremities per self without difficulty or deficits, negative for cords or calf pain. Neurovascular unremarkable. Neuro: Awake, alert, oriented. Cranial nerves II through XII unremarkable. Cerebellum unremarkable. Motor and sensory unremarkable throughout. Exam nonfocal. Psychiatric: Mood and affect are appropriate. Normal thought process. Answering questions appropriately. Notes: *This patient was seen and evaluated during the 2019 SARS-CoV-2 novel coronavirus pandemic period. Community viral transmission is ongoing at time of this encounter and the emergency department is operating under pandemic response procedures. The site in question is slightly red although being that she recently was placed on clindamycin for a dental infection I will have her closely monitor the site while she takes this antibiotic. I do not feel she needs to change the antibiotic quite yet. Strict return precautions were reviewed. Tetanus has been updated. I have talked with the patient about today's findings, in addition to providing specific details for plan of care. Reassessment at the time of disposition demonstrates that the patient is in no acute distress. The patient is stable for discharge, counseling was provided and we discussed in great detail signs and symptoms that would prompt them to return to the Emergency Department. Medication, follow up and supportive care measures were reviewed and discussed. Voices understanding and is agreeable to plan of care. Denies any further questions or concerns at this time. Diagnostics: None Therapeutics: Tdap, bacitracin Prescription: None Impression: Localized skin infection Plan: 1. You were evaluated today on an emergent basis. Your clindamycin should cover the skin infection. Continue to monitor the site closely for signs of improvement. If your symptoms should worsen, new symptoms develop or any of the signs and symptoms we discussed should arise please return to the emergency room or call 911 (if needed). 2. You can alternate Tylenol and ibuprofen as needed for pain and fever management. 3. We encourage you to follow up with your primary care provider and/or recommended specialist in the next few days for re-evaluation and further care/management. Definitive disposition and diagnosis as appropriate pending reevaluation and review of above. - Related Data Allergies Allergy/AdvReac Type Severity Reaction Status Date / Time morphine Allergy Other Verified 10/08/20 18:06 Penicillins Allergy Hives Verified 10/08/20 18:06 Home Meds: Home Meds Budesonide/Formoterol [Symbicort 160-4.5 MCG] 2 puff INH DAILY 07/21/20 [History] Chlorthalidone 25 mg PO DAILY 07/21/20 [History] EPINEPHrine [Epipen] 1 ampule IM DAILY PRN 07/21/20 [History] FLUoxetine [PROzac] 10 ml PO DAILY 07/21/20 [History] Loratadine 10 mg PO DAILY 07/21/20 [History] Metoprolol Succinate 25 mg PO DAILY 07/21/20 [History] Montelukast [Singulair] 10 mg PO DAILY 07/21/20 [History] Naloxone [Narcan] 1 ampule IM DAILY PRN 07/21/20 [History] Non-Formulary Medication [NF Drug] 2 drop EYEBOTH DAILY 07/21/20 [History] QUEtiapine [SEROquel] 200 mg PO DAILY 07/21/20 [History] SUMAtriptan succinate [Imitrex] 100 mg PO DAILY 07/21/20 [History] Tiotropium [place] [Spiriva Respimat] 2 puff INH DAILY 07/21/20 [History] atorvaSTATin [Lipitor] 10 mg PO DAILY 07/21/20 [History] clonazePAM [Clonazepam] 2 mg PO DAILY 07/21/20 [History] dilTIAZem HCL [Diltiazem 12Hr ER] 120 mg PO DAILY 07/21/20 [History] lamoTRIgine [Lamotrigine] 200 mg PO DAILY 07/21/20 [History] oxyCODONE 5 mg PO Q6HR PRN 07/21/20 [History] clindamycin HCL [Clindamycin HCl] 150 mg PO Q8HR 10 Days #30 capsule 05/22/21 [Rx] Past Medical History HEENT History: Reports: Macular Degeneration Cardiovascular History: Reports: Heart Failure, Hypertension Other Cardiovascular History: tachycardia, long QT syndrome Respiratory History: Reports: COPD Other Gastrointestinal History: gastric bypass [place] HAND History: Reports: Musculoskeletal History: Reports: Fibromyalgia, Osteoarthritis Other Musculoskeletal History: shoulder pain, spinal sx, Psychiatric History: Reports: Anxiety, Bipolar Other Endocrine/Metabolic History: pre-diabetic Hematologic History: Reports: None Immunologic History: Reports: None Oncologic (Cancer) History: Reports: None - Infectious Disease History Infectious Disease History: Reports: Chicken Pox, Shingles - Past Surgical History Head Surgeries/Procedures: Reports: None HEENT Surgical History: Reports: Adenoidectomy, Myringotomy w Tube(s), Naso- Sinus Surgery, Tonsillectomy Female Surgical History: Reports: Hysterectomy Musculoskeletal Surgical History: Reports: Knee Replacement Oncologic Surgical History: Reports: None Social & Family History - Family History Family Medical History: No Pertinent Family History - Caffeine Use Caffeine Use: Reports: None, Coffee Review of Systems - Review of Systems Review Of Systems: Comprehensive ROS is negative, except as noted in HPI. ED EXAM, GENERAL - Physical Exam Exam: See Below (See dictation) Course - Vital Signs Last Recorded V/S: Last Vital Signs Temp 97.2 F 10/08/20 18:06 Pulse 86 10/08/20 18:06 Resp 18 10/08/20 18:06 BP 144/92 H 10/08/20 18:06 Pulse Ox 96 10/08/20 18:06 - Orders/Labs/Meds Orders: Active Orders 24 hr Category Date Time Status Vaccines to be Administered [RC] PER UNIT ROUTINE Care 10/08/20 18:12 Ordered Meds: Medications Discontinued Medications Generic Name Dose Route Start Last Admin Trade Name Freq PRN Reason Stop Dose Admin Bacitracin 1 dose 10/08/20 18:12 Bacitracin Oint 1 Gm U/D Packet TOP 10/08/20 18:13 ONETIME ONE Diphtheria/Tetanus/Acell Pertussis 0.5 ml 10/08/20 18:12 Diphtheria,Pertussis(Acell),Tetanus Vaccine 0.5 Ml Syringe IM 10/08/20 18:13 .ONCE ONE Departure - Departure Time of Disposition: 18:18 Disposition: Home, Self-Care 01 Clinical Impression: Skin infection - Discharge Information Instructions: Wound Infection, [id number] Referrals: Haley Morris NP [Primary Care Provider] - Forms: ED Department Discharge Additional Instructions: The following information is given to patients seen in the emergency department who are being discharged to home. This information is to outline your options for follow-up care. We provide all patients seen in our emergency department with a follow-up referral. The need for follow-up, as well as the timing and circumstances, are variable depending upon the specifics of your emergency department visit. If you don't have a primary care physician on staff, we will provide you with a referral. We always advise you to contact your personal physician following an emergency department visit to inform them of the circumstance of the visit and for follow-up with them and/or the need for any referrals to a consulting specialist. The emergency department will also refer you to a specialist when appropriate. This referral assures that you have the opportunity for follow-up care with a specialist. All of these measure are taken in an effort to provide you with optimal care, which includes your follow-up. Under all circumstances we always encourage you to contact your private physician who remains a resource for coordinating your care. When calling for follow-up care, please make the office aware that this follow-up is from your recent emergency room visit. If for any reason you are refused follow-up, please contact the [facility] at and asked to speak to the emergency department charge nurse. [facility] [address] [place] [id number] [address] [address] Thank you for choosing the [facility] emergency department in [place] for your medical needs today. It was a pleasure caring for you. Today you were seen in the emergency department for wound infection. 1. You were evaluated today on an emergent basis. Your clindamycin should cover the skin infection. Continue to monitor the site closely for signs of improvement. If your symptoms should worsen, new symptoms develop or any of the signs and symptoms we discussed should arise please return to the emergency room or call 911 (if needed). 2. You can alternate Tylenol and ibuprofen as needed for pain and fever management. 3. We encourage you to follow up with your primary care provider and/or recommended specialist in the next few days for re-evaluation and further care/management. Sepsis Event Note (ED) - Focused Exam Vital Signs: Vital Signs Temp Pulse Resp BP Pulse Ox 10/08/20 18:06 97.2 F 86 18 144/92 H 96 - My Orders Last 24 Hours: My Active Orders 10/08/20 18:12 Vaccines to be Administered [RC] PER UNIT ROUTINE - Assessment/Plan Last 24 Hours: My Active Orders 10/08/20 18:12 Vaccines to be Administered [RC] PER UNIT ROUTINE
== END 2020-10-08 18:40 | disposition home or self-care (01) ==
LOC: MW.ED 18:00
DX: L08.9 Local infection of the skin and subcutaneous tissue, unspecified (principal); I11.0 Hypertensive heart disease with heart failure; I50.9 Heart failure, unspecified; Z23 Encounter for immunization; Z88.0 Allergy status to penicillin; Z88.6 Allergy status to analgesic agent
CPT/HCPCS: 90471; 90715; 99282; 99283